=== PATIENT | male | born 1965 | race Caucasian/White ===

== ENCOUNTER 2018-06-10 17:16 | Emergency (ER) | payer OTHER ==
--- NOTE | 2018-06-10 19:44 | XR ---
PROCEDURE: XR foot complete RT, 3 views DATE AND TIME: 06/10/2018 7:34 PM REFERRING PHYSICIAN: Meg Daugherty CLINICAL INDICATION: Pain and redness and swelling for 3 days, assess for osteomyelitis TECHNIQUE: AP and lateral and oblique views COMPARISON: None FINDINGS: The bones and joints are unremarkable. Specifically, there is no skeletal evidence of osteo myelitis. There is soft tissue swelling of the forefoot, particularly laterally. No radiopaque foreign body. No soft tissue emphysema. IMPRESSION: Soft tissue swelling noted, but no skeletal evidence of osteomyelitis.
[2018-06-10 20:00] LABS: Basophils % (A) 0 %; Eosinophils # (A) 0.2 k/uL (0-0.7); Eosinophils % (A) 2 %; HCT 40.1 % (39.0-53.0); HGB 13.1 gm/dL (13.0-17.5); Lymphocytes # (A) 1.6 k/uL (1.0-4.8); Lymphocytes % (A) 17 %; MCH 34.5 pg (25.0-35.0); MCHC 32.6 g/dL (31.0-37.0); MCV 105.7 fL (80.0-100.0); Macrocytosis Slight; Mean Platelet Volume 6.8; Monocytes # (A) 0.6 k/uL (0-1.0); Monocytes % (A) 6 %; Neutrophils # (A) 7.2 k/uL (1.3-7.7); Neutrophils % (A) 73 %; Platelet Count 307 k/uL (150-450); RBC 3.79 m/uL (4.30-5.90); RDW 11.5 % (11.5-15.5); WBC 9.9 k/uL (3.8-10.6)
[2018-06-10 20:09] LABS: ALT 30 U/L (21-72); AST 15 U/L (17-59); Albumin 3.7 g/dL (3.5-5.0); Alkaline Phosphatase 72 U/L (38-126); Anion Gap 9 mmol/L; Blood Urea Nitrogen 11 mg/dL (9-20); C Reactive Protein 78.2 mg/L (<10.0); Calcium 8.5 mg/dL (8.4-10.2); Carbon Dioxide 22 mmol/L (22-30); Chloride 105 mmol/L (98-107); Glucose 99 mg/dL (74-99); Potassium 3.9 mmol/L (3.5-5.1); Sodium 136 mmol/L (137-145); Total Bilirubin 0.4 mg/dL (0.2-1.3); Total Protein 6.4 g/dL (6.3-8.2)
[2018-06-10 20:53] VITALS: BP 147/88; PULSE 100; RESP 20; TEMP 99.2
--- NOTE | 2018-06-10 21:20 | ED ---
General Adult HPI - General Chief complaint: Skin/Abscess/Foreign Body Stated complaint: blisters on feet Time Seen by Provider: 06/10/18 18:48 Source: patient, RN notes reviewed Mode of arrival: ambulatory Limitations: no limitations - History of Present Illness Initial comments: This is a 52yo male with PMH of HTN and GERD who presents today for CC of right foot erythema and abscess. Pt states that he has been doing a lot of walking at [place] and has gotten blisters on his feet. he noticed the blister on his right foot near the base of the 5th digit 4 days ago. The erythema began 2 days after. Today was the first day that he noticed the blister seemed to abscess, and looked like it was filled with pus. Pt stated that his was seen by medical professional at [place] who took temperature of 99F and recommended coming to the ER for abx. Pt admits to fever, chills. Pt states the blister is painful but denies pain in other areas of the feet, or the 5th toe. Pt denied previos MRSA infection. Patient denies any recent shortness of breath, chest pain, back pain, abdominal pain, nausea or vomiting, numbness or tingling, dysuria or hematuria, constipation or diarrhea, headaches or visual changes, or any other complaints. - Related Data Home Medications Medication Instructions Recorded Confirmed Calcium Carbonate [Calcium] 600 mg PO DAILY 06/10/18 06/10/18 Catapres Unknown Dose 1 tab PO BID 06/10/18 06/10/18 Ibuprofen [Motrin] 800 mg PO TID PRN 06/10/18 06/10/18 Magnesium 200 mg PO DAILY 06/10/18 06/10/18 Multivitamins, Thera [Multivitamin 1 tab PO DAILY 06/10/18 06/10/18 (formulary)] Zantac Unknown Dose 1 tab PO BID 06/10/18 06/10/18 Zinc 50 mg PO DAILY 06/10/18 06/10/18 Previous Rx's Medication Instructions Recorded Sulfamethox-Tmp 800-160Mg [Bactrim 1 tab PO Q12HR 7 Days #14 tab 06/10/18 DS 800-160 mg] Allergies Allergy/AdvReac Type Severity Reaction Status Date / Time acetaminophen AdvReac Unknown Verified 06/10/18 18:49 [From Tylenol-Codeine #3] codeine AdvReac Unknown Verified 06/10/18 18:49 [From Tylenol-Codeine #3] Review of Systems ROS Statement: Those systems with pertinent positive or pertinent negative responses have been documented in the HPI. ROS Other: All systems not noted in ROS Statement are negative. Constitutional: Reports: as per HPI, fever, chills. Denies: weakness Eyes: Denies: eye discharge ENT: Denies: ear pain, throat pain Respiratory: Denies: cough, dyspnea, stridor Cardiovascular: Denies: chest pain, palpitations Gastrointestinal: Denies: abdominal pain, nausea, vomiting, diarrhea, constipation Genitourinary: Denies: urgency, dysuria, frequency Musculoskeletal: Denies: joint swelling, arthralgia Skin: Reports: as per HPI Past Medical History Past Medical History: GERD/Reflux, Hypertension History of Any Multi-Drug Resistant Organisms: None Reported Past Surgical History: No Surgical Hx Reported Past Psychological History: Anxiety Smoking Status: Current every day smoker Past Alcohol Use History: None Reported Past Drug Use History: None Reported General Exam - General Exam Comments Initial Comments: General: The patient is awake and alert, in no distress, and does not appear acutely ill. Eye: Pupils are equal, round and reactive to light, extra-ocular movements are intact. No nystagmus. There is normal conjunctiva bilaterally. No signs of icterus. Ears, nose, mouth and throat: There are moist mucous membranes and no oral lesions. Neck: The neck is supple, there is no tenderness or JVD. Cardiovascular: There is a regular rate and rhythm. No murmur, rub or gallop is appreciated. Respiratory: Lungs are clear to auscultation, respirations are non-labored, breath sounds are equal. No wheezes, stridor, rales, or rhonchi. Gastrointestinal: [Soft, non-distended, non-tender abdomen without masses or organomegaly noted. There is no rebound or guarding present. No CVA tenderness. Bowel sounds are unremarkable.] Musculoskeletal: Normal ROM, no tenderness of the feet and digits b/l- only tenderness to palpation of the erythematous region of the right foot and over abscess. Strength 5/5. Sensation intact of the feet and LE b/l. Pulses equal bilaterally 2+ DP. Neurological: A&O x 3. CN II-XII intact, There are no obvious motor or sensory deficits. Coordination appears grossly intact. Speech is normal. Skin: Skin is warm and dry.. Fluctulant area that appears to be filled with pus on the lateral aspect of the right foot with surrounding erythema extending toward ankle and bottom of foot, that is warm to palpation and tender to pressure. Soft tissue edema. Psychiatric: Cooperative, appropriate mood & affect, normal judgment. Limitations: no limitations Course Vital Signs 06/10/18 06/10/18 17:22 20:53 Temperature 99.7 F H 99.2 F Pulse Rate 111 H 100 Respiratory 18 20 Rate Blood Pressure 162/103 147/88 O2 Sat by Pulse 98 96 Oximetry Procedures - Incision & Drainage Consent Obtained: verbal consent Time Out Performed?: Yes Indication: fluctulant abscess Site: foot (right foot, lateral aspect near base of fifth digit) Size (cm): 2 I&D Cleaning Method: Iodine Sterile Field Used?: Yes Scalpel Used: #11 Needle Aspiration Performed?: No Irrigation Performed?: Yes I&D Drainage Obtained: Pus, Blood Packing: Other (none ) Culture Obtained?: Yes Patient Tolerated Procedure: well, no complications Medical Decision Making - Medical Decision Making 52yo NON diabetic pt with CC of right foot pain, erythema and abscess concerning for possible cellulitis with abscess or osteomyelitis. CBC, CMP, CRP , rt foot XR and blood cx obtained. I & D performed minimal pus and blood drained from abscess. XR (-) for evidence of osteomyelitis at this time. CRP elevated, WBC WNL. Case was discussed in detail with Dr. Wick. At this time we feel this is a cellulitis with abscess from previous blister rather than an early osteomyelitis or septic joint due to physcial examination findings, lab results, VS and imaging. Pt was given 2g IVP cefazolin and then sent home with RX for PO bactrim DS for soft tissue infectin with MRSA coverage. Pt was given ibuprofen for pain. At this time we have low suspicion for systemic infection given laboratory value, VS and patient overall well appearance, pt appear non- toxic. Pt will be discharged with abx and PCP f/u in 1-2 days. Pt was educated on signs of system and worsening localized infection and instrcuted to return if these appear. Pt agreed d/c stable condition. - Lab Data Result diagrams: 06/10/18 19:47 06/10/18 19:47 Lab Results 06/10/18 06/10/18 Range/Units 19:47 19:47 WBC 9.9 (3.8-10.6) k/uL RBC 3.79 L (4.30-5.90) m/uL Hgb 13.1 (13.0-17.5) gm/dL Hct 40.1 (39.0-53.0) % MCV 105.7 H (80.0-100.0) fL MCH 34.5 (25.0-35.0) pg MCHC 32.6 (31.0-37.0) g/dL RDW 11.5 (11.5-15.5) % Plt Count 307 (150-450) k/uL Neutrophils % 73 % Lymphocytes % 17 % Monocytes % 6 % Eosinophils % 2 % Basophils % 0 % Neutrophils # 7.2 (1.3-7.7) k/uL Lymphocytes # 1.6 (1.0-4.8) k/uL Monocytes # 0.6 (0-1.0) k/uL Eosinophils # 0.2 (0-0.7) k/uL Basophils # 0.0 (0-0.2) k/uL Macrocytosis Slight Sodium 136 L (137-145) mmol/L Potassium 3.9 (3.5-5.1) mmol/L Chloride 105 (98-107) mmol/L Carbon Dioxide 22 (22-30) mmol/L Anion Gap 9 mmol/L BUN 11 (9-20) mg/dL Creatinine 0.60 L (0.66-1.25) mg/dL Est GFR (CKD-EPI)AfAm >90 (>60 ml/min/1.73 sqM) Est GFR (CKD-EPI)NonAf >90 (>60 ml/min/1.73 sqM) Glucose 99 (74-99) mg/dL Calcium 8.5 (8.4-10.2) mg/dL Total Bilirubin 0.4 (0.2-1.3) mg/dL AST 15 L (17-59) U/L ALT 30 (21-72) U/L Alkaline Phosphatase 72 (38-126) U/L C-Reactive Protein 78.2 H (<10.0) mg/L Total Protein 6.4 (6.3-8.2) g/dL Albumin 3.7 (3.5-5.0) g/dL Disposition Clinical Impression: Cellulitis and abscess of foot Disposition: HOME SELF-CARE Condition: Good Instructions: Cellulitis (ED), Abscess Incision and Drainage (ED) Additional Instructions: Please use medication as discussed. Please follow-up with family doctor in the next 2 days. If redness is increasing or spreading please immediately return to emergency department. Please return to emergency room if the symptoms increase or worsen or for any other concerns as discussed. Prescriptions: Sulfamethox-Tmp 800-160Mg [Bactrim DS 800-160 mg] 1 tab PO Q12HR 7 Days #14 tab Is patient prescribed a controlled substance at d/c from ED?: No Referrals: None,Stated [Primary Care Provider] - 1-2 days Time of Disposition: 21:16
[2018-06-10] MEDS ORDERED: IBUPROFEN 800 MG TAB PO STA (21:23)
[2018-06-10] MEDS ORDERED: ceFAZolin IN SWFI 2 GM/20 ML SYRINGE IVP ONE (21:30)
== END 2018-06-10 21:49 | disposition home or self-care (01) ==
LOC: EC 17:16
DX: L02.611 Cutaneous abscess of right foot (principal); L03.115 Cellulitis of right lower limb; K21.9 Gastro-esophageal reflux disease without esophagitis; I10 Essential (primary) hypertension; F17.200 Nicotine dependence, unspecified, uncomplicated; Z79.899 Other long term (current) drug therapy; Z88.5 Allergy status to narcotic agent; Z88.8 Allergy status to other drugs, medicaments and biological substances
CPT/HCPCS: 36415; 80053; 85025; 86140; 87040; 87070; 87205; 73630; 99283; 10060; 96374; J0690; 87077; 87186

== ENCOUNTER 2018-06-11 11:08 | Inpatient (IN) | payer OTHER ==
[2018-06-11] MEDS ORDERED: ceFAZolin IN SWFI 2 GM/20 ML SYRINGE IVP ONE (11:57)
[2018-06-11] MEDS ORDERED: ceFAZolin IN SWFI 2 GM/20 ML SYRINGE IVP STA (11:59)
--- NOTE | 2018-06-11 12:05 | ED ---
General Adult HPI - General Chief complaint: Recheck/Abnormal Lab/Rx Stated complaint: Sore on Foot Time Seen by Provider: 06/11/18 11:38 Source: patient, RN notes reviewed Mode of arrival: ambulatory Limitations: no limitations - History of Present Illness Initial comments: This is a 52-year-old male who presents to the emergency department with chief complaint of foot sore. Patient was seen in the emergency department here yesterday and diagnosed with right foot cellulitis. He was given IV antibiotics while in the emergency department and discharged home with oral Bactrim. CBC was within normal limits. CRP was elevated at 78.2. X-ray was obtained which revealed no evidence for acute osteomyelitis. Patient was contacted by provider, Maria Elena Daugherty who cared for patient yesterday. She was concerned about the elevated CRP as this can be seen with a necrotizing fasciitis. She recommended that patient return to the emergency department for further evaluation. Patient states that he does feel like the redness spread slightly but reports decreased pain. I&D was performed yesterday and a wound culture was obtained. Culture is still pending, however Gram-positive cocci have been noted. Patient denies any fevers or chills. States that the wound has still been draining actively. Denies chest pain or shortness of breath, abdominal pain, nausea or vomiting. Patient denies injuries or trauma. - Related Data Home Medications Medication Instructions Recorded Confirmed Ibuprofen [Motrin] 400 mg PO QID PRN 06/10/18 06/11/18 Multivitamins, Thera [Multivitamin 1 tab PO DAILY 06/10/18 06/11/18 (formulary)] Acetaminophen Tab [Tylenol Tab] 650 mg PO Q4H PRN 06/11/18 06/11/18 Calcium/Magnesium/Zinc 2 tab PO TID 06/11/18 06/11/18 [Tcmnxyh-Lxvqebgni-Crhu Tablet] Chlorpheniramine Maleate 4 mg PO Q4H PRN 06/11/18 06/11/18 [Chlor-Trimeton] Ranitidine HCl [Zantac] 150 mg PO BID 06/11/18 06/11/18 Thiamine [Vitamin B-1] 100 mg PO DAILY 06/11/18 06/11/18 cloNIDine HCL [Catapres] 0.1 mg PO BID 06/11/18 06/11/18 Previous Rx's Medication Instructions Recorded Sulfamethox-Tmp 800-160Mg [Bactrim 1 tab PO Q12HR 7 Days #14 tab 06/10/18 DS 800-160 mg] Allergies Allergy/AdvReac Type Severity Reaction Status Date / Time acetaminophen AdvReac Unknown Verified 06/11/18 12:01 [From Tylenol-Codeine #3] codeine AdvReac Unknown Verified 06/11/18 12:01 [From Tylenol-Codeine #3] Review of Systems ROS Statement: Those systems with pertinent positive or pertinent negative responses have been documented in the HPI. ROS Other: All systems not noted in ROS Statement are negative. Past Medical History Past Medical History: GERD/Reflux, Hypertension History of Any Multi-Drug Resistant Organisms: None Reported Past Surgical History: No Surgical Hx Reported Past Psychological History: Anxiety Smoking Status: Current every day smoker Past Alcohol Use History: Abuse Past Drug Use History: None Reported General Exam - General Exam Comments Initial Comments: General: Awake and alert, well-developed; in no apparent distress. HEENT: Head atraumatic, normocephalic. Pupils are equal, round and reactive to light. Extraocular movements intact. Oropharynx moist without erythema or exudate. Neck: Supple. Normal ROM. Cardiovascular: Regular rate and rhythm. No murmurs, rubs or gallops. Chest symmetrical. Respiratory: Lungs clear to auscultation bilaterally. No wheezes, rales or rhonchi. Normal respiratory effort with no use of accessory muscles. Musculoskeletal: Normal ROM bilateral upper and lower extremities. Skin: Open blister with purulent drainage at the lateral right foot just proximal to the fifth digit. There is surrounding erythema up to the patient's ankle with 2+ pitting edema. Sensation is intact. Pedal pulses are 2+ equal and palpable bilaterally. Neurological: Alert and oriented x3. CN II-XII grossly intact. Speech is fluent and answers are appropriate. No focal neuro deficits. Psychiatric: Normal mood and affect. No overt signs of depression or anxiety noted. Limitations: no limitations Course Vital Signs 06/11/18 06/11/18 11:15 12:45 Temperature 98.2 F Pulse Rate 103 H 99 Respiratory 16 16 Rate Blood Pressure 121/85 118/70 O2 Sat by Pulse 99 97 Oximetry Medical Decision Making - Medical Decision Making This is a 52-year-old male presents emergency department with chief complaint of right foot sore. Patient was seen here in the emergency department yesterday and diagnosed with right foot cellulitis. He was discharged home with Bactrim. At the time CBC revealed a normal white count and a CRP at 78.2. Patient returns to the emergency department today and has previous provider was concerned for necrotizing fasciitis. CRP was slightly elevated from yesterday 282. I, CBC is within normal limits. Patient is afebrile. On physical examination, there is diffuse erythema and swelling of the right foot with purulent drainage from a blister at the lateral distal right foot. Patient given a dose of IV cefazolin while in the emergency department. Computed tomography scan of the right foot was obtained which revealed evidence for severe subcutaneous soft tissue edema consistent with cellulitis. No evidence for necrotizing fasciitis or osteomyelitis. Patient will be admitted for IV antibiotics. He will be placed on vancomycin and Rocephin. Blood cultures were drawn yesterday and are pending. Patient's vital signs are stable and he is in no acute distress. He is in agreement for admission. - Lab Data Result diagrams: 06/11/18 12:30 06/11/18 12:30 Lab Results 06/11/18 06/11/18 Range/Units 12:30 12:30 WBC 8.5 (3.8-10.6) k/uL RBC 3.94 L (4.30-5.90) m/uL Hgb 14.2 (13.0-17.5) gm/dL Hct 41.3 (39.0-53.0) % MCV 104.9 H (80.0-100.0) fL MCH 36.1 H (25.0-35.0) pg MCHC 34.4 (31.0-37.0) g/dL RDW 11.6 (11.5-15.5) % Plt Count 314 (150-450) k/uL Neutrophils % 62 % Lymphocytes % 20 % Monocytes % 10 % Eosinophils % 4 % Basophils % 0 % Neutrophils # 5.3 (1.3-7.7) k/uL Lymphocytes # 1.7 (1.0-4.8) k/uL Monocytes # 0.8 (0-1.0) k/uL Eosinophils # 0.3 (0-0.7) k/uL Basophils # 0.0 (0-0.2) k/uL Macrocytosis Slight Sodium 139 (137-145) mmol/L Potassium 4.4 (3.5-5.1) mmol/L Chloride 107 (98-107) mmol/L Carbon Dioxide 23 (22-30) mmol/L Anion Gap 9 mmol/L BUN 16 (9-20) mg/dL Creatinine 0.70 (0.66-1.25) mg/dL Est GFR (CKD-EPI)AfAm >90 (>60 ml/min/1.73 sqM) Est GFR (CKD-EPI)NonAf >90 (>60 ml/min/1.73 sqM) Glucose 112 H (74-99) mg/dL Calcium 9.4 (8.4-10.2) mg/dL Total Bilirubin 0.3 (0.2-1.3) mg/dL AST 20 (17-59) U/L ALT 29 (21-72) U/L Alkaline Phosphatase 75 (38-126) U/L C-Reactive Protein 82.0 H (<10.0) mg/L Total Protein 6.6 (6.3-8.2) g/dL Albumin 3.7 (3.5-5.0) g/dL - Radiology Data Radiology results: report reviewed CT right foot without contrast impression: 1. Severe subcutaneous soft tissue edema dorsally and laterally suggestive of cellulitis. There is some skin breakdown bilaterally at the level of the fifth MCP joint. No edema within the deeper compartments or soft tissue air to indicate necrotizing fasciitis at this time. Close follow-up as indicated. 2. Well-defined, chronic, bony tunneling which extends from the os trigonum into the posterior talus to the level of the sinuses to see. Query history of prior surgery. Alternatively, this could be chronic posttraumatic or postinfectious sequela. No osseous erosions to suggest osteomyelitis. 3. Focal fusiform thickening along the plantar fascia at the mid foot level measuring 2.6 x 1.3 cm. The patient's history reports an abscess along the bottom of the foot, this location and appearance is more suggestive of a plantar fibroma. Clinically correlate. Disposition Clinical Impression: Cellulitis and abscess of foot Disposition: ADMITTED IP TO THIS HOSP Condition: Fair Is patient prescribed a controlled substance at d/c from ED?: No Referrals: None,Stated [Primary Care Provider] - 1-2 days Time of Disposition: 14:11
[2018-06-11 12:38] LABS: Basophils % (A) 0 %; Eosinophils # (A) 0.3 k/uL (0-0.7); Eosinophils % (A) 4 %; HCT 41.3 % (39.0-53.0); HGB 14.2 gm/dL (13.0-17.5); Lymphocytes # (A) 1.7 k/uL (1.0-4.8); Lymphocytes % (A) 20 %; MCH 36.1 pg (25.0-35.0); MCHC 34.4 g/dL (31.0-37.0); MCV 104.9 fL (80.0-100.0); Macrocytosis Slight; Mean Platelet Volume 6.9; Monocytes # (A) 0.8 k/uL (0-1.0); Monocytes % (A) 10 %; Neutrophils # (A) 5.3 k/uL (1.3-7.7); Neutrophils % (A) 62 %; Platelet Count 314 k/uL (150-450); RBC 3.94 m/uL (4.30-5.90); RDW 11.6 % (11.5-15.5); WBC 8.5 k/uL (3.8-10.6)
[2018-06-11 12:48] LABS: ALT 29 U/L (21-72); AST 20 U/L (17-59); Albumin 3.7 g/dL (3.5-5.0); Alkaline Phosphatase 75 U/L (38-126); Anion Gap 9 mmol/L; Blood Urea Nitrogen 16 mg/dL (9-20); Calcium 9.4 mg/dL (8.4-10.2); Carbon Dioxide 23 mmol/L (22-30); Chloride 107 mmol/L (98-107); Glucose 112 mg/dL (74-99); Potassium 4.4 mmol/L (3.5-5.1); Sodium 139 mmol/L (137-145); Total Bilirubin 0.3 mg/dL (0.2-1.3); Total Protein 6.6 g/dL (6.3-8.2)
--- NOTE | 2018-06-11 13:53 | CT ---
EXAMINATION TYPE: CT foot RT wo con DATE OF EXAM: 06/11/2018 COMPARISON: Radiographs 06/10/2018 HISTORY: 52-year-old male with right foot infection, abscess along bottom of foot, rule out necrotizi ng fasciitis. TECHNIQUE: Contiguous axial scanning of the right foot without IV contrast. Coronal and sagittal william nstructions performed. CT DLP: 153 mGycm Automated exposure control for dose reduction was used. FINDINGS: There is well-defined osseous tunneling that extends within the os trigonum into the posterior talus to the level of the sinus Tarsi. This could be on a postsurgical basis. Diffuse soft tissue swelling of the foot especially dorsally and laterally. Mild skin breakdown along the lateral aspect of the forefoot/midfoot at the level of the fifth MTP kimberly int. There is focal fusiform thickening along the plantar fascia at the midfoot level measuring 2.6 x 1.3 cm, referred to axial image 33 and sagittal image 17. Lack of IV contrast limits assessment for abscess. No soft tissue air or definite fluid seen tracking along the deeper fascial planes. No freeman fluid di stention of the tendon sheaths. No discrete osseous erosions are seen. Plantar calcaneal spur. IMPRESSION: 1. SEVERE SUBCUTANEOUS SOFT TISSUE EDEMA DORSALLY AND LATERALLY SUGGESTIVE OF CELLULITIS. THERE IS SO ME SKIN BREAKDOWN LATERALLY AT THE LEVEL OF THE FIFTH MTP JOINT. NO EDEMA WITHIN THE DEEPER COMPARTME NTS OR SOFT TISSUE AIR TO INDICATE NECROTIZING FASCIITIS AT THIS TIME. CLOSE FOLLOW-UP INDICATED. 2. WELL-DEFINED, CHRONIC, BONY TUNNELING WHICH EXTENDS FROM THE OS TRIGONUM INTO THE POSTERIOR TALUS TO THE LEVEL OF THE SINUS TARSI. QUERY HISTORY OF PRIOR SURGERY. ALTERNATIVELY, THIS COULD BE CHRONIC POST TRAUMATIC OR POST INFECTIOUS SEQUELA. NO OSSEOUS EROSIONS TO SUGGEST OSTEOMYELITIS. 3. FOCAL FUSIFORM THICKENING ALONG THE PLANTAR FASCIA AT THE MIDFOOT LEVEL MEASURING 2.6 X 1.3 CM. WH ILE THE PATIENT'S HISTORY REPORTS AN ABSCESS ALONG THE BOTTOM OF THE FOOT, THIS LOCATION AND APPEARAN CE IS MORE SUGGESTIVE OF A PLANTAR FIBROMA. CLINICALLY CORRELATE.
[2018-06-11] MEDS ORDERED: VANCOMYCIN IV PER PHARMACY 1 EACH MISC MISCELLANE PRN (14:01)
[2018-06-11] MEDS ORDERED: VANCOMYCIN 1,500 MG in SODIUM CHLORIDE 0.9% 250 ML IVPB STA (14:11)
[2018-06-11] MEDS ORDERED: KETOROLAC 30 MG/ML 1 ML VIAL IVP PRN (14:12)
[2018-06-11] MEDS: SODIUM CHLORIDE 0.9% 1,000 ML IV SCH (15:46)
[2018-06-11] MEDS ORDERED: cefTRIAXone IN SWFI 1,000 MG/10 ML SYRINGE IVP SCH (16:00)
[2018-06-11] MEDS: IBUPROFEN 600 MG TAB PO PRN (22:11)
[2018-06-11] MEDS: FAMOTIDINE 20 MG TAB PO SCH (22:11)
[2018-06-11] MEDS: cloNIDine HCL 0.1 MG TAB PO SCH (22:11)
--- NOTE | 2018-06-11 23:14 | HP ---
HISTORY AND PHYSICAL CHIEF COMPLAINT: A 52-year-old white male with right foot cellulitis. Apparently he has been at [facility] for rehab over the past 21 days for alcohol rehab. He was admitted here after coming to the hospital yesterday. He came back again today due to worsening blisters and redness of his right foot. He apparently had a CT scan of his foot that showed no acute osteomyelitis. He was started on vancomycin, admitted to the hospital due to his entire foot was extremely red. HOME MEDICATIONS: Include: 1. Motrin. 2. Zantac. 3. Catapres 0.1 b.i.d. ALLERGIES: TYLENOL. REVIEW OF SYSTEMS: Fourteen-point review of systems negative except for mentioned in HPI. PAST MEDICAL HISTORY: GERD, reflux, hypertension, anxiety. Current everyday smoker. OPHTHALMOLOGICAL: Pupils equal, round, reactive to light and accommodation. Lungs are clear. GI: Soft. HEMATOLOGY: Negative Homans'. OPHTHALMOLOGIC: Pupils equal, round, react to light and accommodation. INTEGUMENT: His entire right foot is extremely red and warm. He has a pustule on the right lateral mid foot about 2 x 2 cm. Blood pressure is 118-120/70s-85. T-max is 98.2, pulse is 99-103, O2 97%-99% on room air. ASSESSMENT: 1. Significant cellulitis of the entire right foot, failing outpatient treatment. 2. Open ulceration of the right foot. Surgical consult with Dr. Mckeon as well as consult with Infectious Disease was done. Continue vancomycin. 3. History of alcoholism alcohol rehab and clonidine for rehab and possibly tachycardia. Continue with current treatment from home and IV antibiotics. Await Infectious Disease and Vascular consult. MMODL / IJN: [id number] /
[2018-06-12] MEDS: VANCOMYCIN 1,500 MG in SODIUM CHLORIDE 0.9% 250 ML IVPB SCH ×3 (00:11→15:58)
[2018-06-12] MEDS: SODIUM CHLORIDE 0.9% 1,000 ML IV SCH ×2 (04:41→15:59)
--- NOTE | 2018-06-12 05:26 | CONS ---
CONSULTATION DATE OF SERVICE: 06/11/2018 REASON FOR CONSULTATION: Right foot abscess and cellulitis. HISTORY OF PRESENT ILLNESS: Patient is a 52-year-old male who is currently at [facility]. The patient says that he has been doing a lot of walking while at [facility] and developing blister on both his feet and mostly at the base of his fifth toe on both feet. On the right side, the patient has developed a blister that has opened up with some superficial ulceration and minimal drainage and subsequent redness of his right foot. Patient has been complaining of pain into the right foot, more of a throbbing pain, 5 to 6 out of 10, and no radiation. He did have some associated chills with these symptoms so the patient has been evaluated by the ER physician yesterday. He did have x-rays which was negative for any bony changes. The patient subsequently discharged home on Bactrim DS. Apparently, the patient did have blood work with elevated CRP with ER physician concerning it may be necrotizing fascitis, asked the patient to come back to the hospital. A CT was done which was negative for fasciitis. The patient has been admitted to the hospital and Infectious Disease was consulted for further recommendation regarding antibiotic therapy. REVIEW OF SYSTEMS: CONSTITUTIONAL: Positive for weakness along with some chills. EYES: No complaint. ENT: No complaint. RESPIRATORY: No complaint. CARDIOVASCULAR: No complaint. GENITOURINARY: No complaint. GASTROINTESTINAL: No complaint. MUSCULOSKELETAL: As per HPI. INTEGUMENTARY: As per HPI. PSYCHOLOGICAL: No complaint. ENDOCRINE: No complaint. NEUROLOGIC: No complaint. PAST MEDICAL HISTORY: His past medical history is significant for gastroesophageal reflux disease, hypertension. PAST SURGICAL HISTORY: No major surgeries. SOCIAL HISTORY: Current every day smoker. Did admit to alcohol abuse. No drug use. FAMILY HISTORY: No pertinent findings noticed. ALLERGIES: Allergies to ACETAMINOPHEN and CODEINE. MEDICATIONS: Medications include the patient is currently on Rocephin 1 gram daily. He is on clonidine, Pepcid, Motrin, Toradol, Theragran, vancomycin mg every 8 hours. PHYSICAL EXAMINATION: On examination, blood pressure is 121/92 with a pulse of 90, temperature 98.6. He is 98% on room air. General description is a middle-aged male lying in bed in no distress. No tachypnea or accessory muscle of respiration use. HEENT examination shows no pallor or scleral icterus. Oral mucous membrane is dry. No pharyngeal erythema or thrush. NECK: Trachea central. No thyromegaly. LUNGS: Unlabored breathing, clear to auscultation anteriorly. No wheeze or crackle. HEART: S1, S2. Regular rate and rhythm. No added sounds. ABDOMEN: Soft. No tenderness. No guarding or rigidity. EXTREMITIES: Right foot is swollen and red, slightly warm to touch. On the left side, he did have a pustule that was open and cultures were obtained. NEUROLOGICAL: Patient is awake, alert, oriented x3. Mood and affect normal. LABS: Hemoglobin is 14.2, white count 8.5 with a BUN of 16, creatinine 0.90. Electrolytes have been normal. Liver enzymes are normal. Cultures currently pending. DIAGNOSTIC IMPRESSION AND PLAN: Patient with right foot cellulitis that started with a blister to the lateral side of his foot from walking. The patient likely from a gram-positive skin travis, has a question of possible methicillin-resistant Staphylococcus aureus versus methicillin- sensitive Staphylococcus aureus. Clinically, the patient is for a gram-negative infection though not entirely excluded. PLAN: 1. Wound culture has been obtained and to guide further antibiotic therapy. 2. Vancomycin pharmacy to dose, target of 15 while awaiting for the culture to finalize. 3. Chuck the area of redness. 4. Depending upon the clinical response as well as cultures will adjust medication further if needed. Thank you for this consultation. Will follow this patient along with you. MMODL / IJN: [id number] /
[2018-06-12] MEDS: THIAMINE 100 MG TAB PO SCH (07:35)
[2018-06-12] MEDS: cefTRIAXone IN SWFI 2,000 MG/20 ML SYRINGE IVP SCH (07:35)
[2018-06-12] MEDS: MULTIVITAMINS, THERA 1 EACH TAB PO SCH (07:35)
[2018-06-12] MEDS: FAMOTIDINE 20 MG TAB PO SCH ×2 (07:35→22:03)
[2018-06-12] MEDS: cloNIDine HCL 0.1 MG TAB PO SCH ×2 (07:35→22:03)
[2018-06-12] MEDS: IBUPROFEN 600 MG TAB PO PRN ×2 (07:38→22:14)
[2018-06-12 09:52] LABS: Basophils % (A) 1 %; Eosinophils # (A) 0.4 k/uL (0-0.7); Eosinophils % (A) 6 %; HCT 37.4 % (39.0-53.0); HGB 12.2 gm/dL (13.0-17.5); Lymphocytes # (A) 1.3 k/uL (1.0-4.8); Lymphocytes % (A) 24 %; MCHC 32.5 g/dL (31.0-37.0); MCV 107.5 fL (80.0-100.0); Macrocytosis Moderate; Monocytes # (A) 0.4 k/uL (0-1.0); Monocytes % (A) 6 %; Neutrophils # (A) 3.3 k/uL (1.3-7.7); Neutrophils % (A) 60 %; Platelet Count 257 k/uL (150-450); RBC 3.48 m/uL (4.30-5.90); RDW 11.7 % (11.5-15.5); WBC 5.5 k/uL (3.8-10.6)
[2018-06-12 09:57] LABS: ALT 27 U/L (21-72); AST 17 U/L (17-59); Alkaline Phosphatase 60 U/L (38-126); Anion Gap 7 mmol/L; Blood Urea Nitrogen 15 mg/dL (9-20); Calcium 8.5 mg/dL (8.4-10.2); Carbon Dioxide 22 mmol/L (22-30); Chloride 109 mmol/L (98-107); Glucose 142 mg/dL (74-99); Potassium 4.4 mmol/L (3.5-5.1); Sodium 138 mmol/L (137-145); Total Bilirubin 0.2 mg/dL (0.2-1.3); Total Protein 5.4 g/dL (6.3-8.2)
--- NOTE | 2018-06-12 13:24 | P.ARTDOP ---
Arterial Doppler Wound care consultation: Reason for consultation: Ulceration right foot. History of chief complaint: While in [place] rehab facility for alcohol abuse, the patient developed an ulcer on the lateral right foot. He developed a lot of pain in the foot. He was transferred here for medical care. The rest of his history is pretty noncontributory in regards to this wound. Physical examination: Well-developed well-nourished 52-year-old gentleman in no current acute distress. HEENT: Teeth in poor repair Lungs: Well aerated Heart: Sinus rhythm Abdomen: Benign Extremities: Bounding bilateral pulses. On the dorsal lateral aspect of the right foot the patient has a blistering. Underneath the blister there are still several small shallow ulcerations. These appear to be full-thickness but are fairly clean once the blistered skin is removed. Impression: Traumatic ulcer dorsum lateral right foot with fatty layer exposed. Recommendation: At this point I would continue with antibiotics. They could very soon be transferred over to oral antibiotics. I would simply treat the ulcers themselves with topical application of absorptive silver/Aquasol silver. The wound would be cleansed every other day and the dressing changed. I will be happy to see him as needed.
--- NOTE | 2018-06-12 14:18 | PN ---
PROGRESS NOTE DATE OF SERVICE: 06/12/2018 REASON FOR FOLLOWUP: Right foot wound and cellulitis. INTERVAL HISTORY: The patient is currently afebrile. He is breathing comfortably. Denies having any chest pain or shortness of breath or cough. No abdominal pain. Pain to the right foot. Slight decreased intensity and no drainage. PHYSICAL EXAMINATION: Blood pressure 120/71 with a pulse of 81, temperature 97.6. He is 99% on room air. General description is a middle-aged male, lying in bed in no distress. RESPIRATORY SYSTEM: Unlabored breathing, clear to auscultation anteriorly. HEART: S1, S2. Regular rate and rhythm. ABDOMEN: Soft, no tenderness. Right foot swelling that has minimal drainage. LABS: The culture obtained on 06/10 showing presumptive Staph aureus. Blood culture has been negative. DIAGNOSTIC IMPRESSION AND PLAN: Patient with right foot wound with secondary cellulitis. Culture has been positive for this Staphylococcus aureus with concern for possible methicillin-resistant Staphylococcus aureus. He is currently on vancomycin, pharmacy to dose. Will continue while watching his kidney function closely, adjusting antibiotic further based on the clinical response as well as cultures. Continue supportive care. MMODL / IJN: [id number] /
--- NOTE | 2018-06-12 18:56 | PN ---
PROGRESS NOTE SUBJECTIVE: This is a 52-year-old white male with right foot cellulitis and lateral foot abscess. Awaiting consult by Vascular Surgery, Dr. Mckeon, as well as Infectious Disease. He remains on IV vancomycin for failed outpatient treatment. Integument shows the entire foot is red with an callus ulcer on the right lateral foot. His entire is warm and swollen. CARDIOVASCULAR: S1, S2. LUNGS: Clear. GI: Soft. HEMATOLOGY: Negative Homans. ASSESSMENT: 1. Right foot cellulitis. 2. Abscess to the right lateral foot. 3. Alcohol dependence. PLAN: Continue with current treatment with vancomycin. Await infectious disease recommendation and vascular recommendation. MMODL / IJN: [id number] /
[2018-06-13] MEDS: VANCOMYCIN 1,500 MG in SODIUM CHLORIDE 0.9% 250 ML IVPB SCH ×2 (01:02→08:04)
[2018-06-13] MEDS ORDERED: VANCOMYCIN TROUGH DUE 1 EACH MISC MISCELLANE ONE (07:00)
[2018-06-13 07:38] VITALS: RESP 16
[2018-06-13] MEDS: SODIUM CHLORIDE 0.9% 1,000 ML IV SCH ×2 (08:03→20:37)
[2018-06-13] MEDS: cloNIDine HCL 0.1 MG TAB PO SCH ×2 (08:04→20:35)
[2018-06-13] MEDS: MULTIVITAMINS, THERA 1 EACH TAB PO SCH (08:04)
[2018-06-13] MEDS: FAMOTIDINE 20 MG TAB PO SCH ×2 (08:04→20:35)
[2018-06-13] MEDS: THIAMINE 100 MG TAB PO SCH (08:04)
[2018-06-13] MEDS: cefTRIAXone IN SWFI 2,000 MG/20 ML SYRINGE IVP SCH (08:04)
[2018-06-13] MEDS: ceFAZolin IN SWFI 2 GM/20 ML SYRINGE IVP SCH ×2 (15:39→23:12)
[2018-06-13] MEDS ORDERED: VANCOMYCIN 1,250 MG in SODIUM CHLORIDE 0.9% 250 ML IVPB SCH (16:00)
[2018-06-13] MEDS: IBUPROFEN 600 MG TAB PO PRN (20:35)
--- NOTE | 2018-06-13 23:22 | PN ---
PROGRESS NOTE DATE OF SERVICE: 06/13/2018 REASON FOR FOLLOWUP: Right foot wound and cellulitis, MSSA. INTERVAL HISTORY: The patient is currently afebrile. He is breathing comfortably. Denies having any chest pain or shortness of breath or cough. No abdominal pain or any worsening pain in the right foot area. PHYSICAL EXAMINATION: Blood pressure 140/88 with a pulse of 79, temperature 97.5. He is 95% on room air. General description is a middle-aged male lying in bed in no distress. RESPIRATORY SYSTEM: Unlabored breathing. Clear to auscultation anteriorly. HEART: S1, S2. Regular rate and rhythm. ABDOMEN: Soft. No tenderness. LABS: Wound culture finalized with MSSA. DIAGNOSTIC IMPRESSION AND PLAN: Patient with MSSA right foot wound and cellulitis. Antibiotic will be switched to cefazolin 2 grams q.8 hours. Continue with IV antibiotic for at least 24 hours and if the patient continues to improve, to finish therapy with oral antibiotics. Continue supportive care. Plan of care was discussed with the admitting physician. GAVI / TESSA: [id number] /
--- NOTE | 2018-06-14 05:04 | PN ---
PROGRESS NOTE SUBJECTIVE: This is a 52-year-old white male right foot cellulitis and abscess. Dr. Mckeon discussed it with him. Remain on IV antibiotics for another 24 hours and switch to oral antibiotics tomorrow, possibly Augmentin and can be discharged. Vital signs stable. Afebrile. Cardiovascular: S1, S2. GI soft. Hematology negative Homans. Integument shows right foot decreased redness and swelling. Right lateral foot still has an abrasion in the debridement area. ASSESSMENT: 1. Cellulitis/abscess of the right lateral foot. 2. Alcohol dependence. Continue current treatment. Possible oral antibiotics. Home tomorrow on Augmentin. MMODL / IJN: [id number] /
[2018-06-14 06:17] VITALS: BP 134/78; PULSE 74; TEMP 97.9
[2018-06-14] MEDS: FAMOTIDINE 20 MG TAB PO SCH (07:55)
[2018-06-14] MEDS: cloNIDine HCL 0.1 MG TAB PO SCH (07:56)
[2018-06-14] MEDS: MULTIVITAMINS, THERA 1 EACH TAB PO SCH (07:56)
[2018-06-14] MEDS: THIAMINE 100 MG TAB PO SCH (07:56)
[2018-06-14] MEDS: SODIUM CHLORIDE 0.9% 1,000 ML IV SCH (07:56)
[2018-06-14] MEDS: ceFAZolin IN SWFI 2 GM/20 ML SYRINGE IVP SCH (07:56)
[2018-06-14 08:56] LABS: Anion Gap 7 mmol/L; Blood Urea Nitrogen 9 mg/dL (9-20); Carbon Dioxide 25 mmol/L (22-30); Chloride 109 mmol/L (98-107); Glucose 104 mg/dL (74-99); Potassium 4.7 mmol/L (3.5-5.1); Sodium 141 mmol/L (137-145)
--- NOTE | 2018-06-14 13:56 | PN ---
PROGRESS NOTE DATE OF SERVICE: 06/14/2018 REASON FOR FOLLOWUP: Right foot MSSA abscess and cellulitis. INTERVAL HISTORY: The patient is currently afebrile. He is breathing comfortably. Denies having any chest pain. No cough. No abdominal pain. Only with pain in the right foot area. PHYSICAL EXAMINATION: Blood pressure 134/78 with a pulse of 74, temperature of 97.9, he is 97% on room air. General description is a middle-aged male, up in the room in no distress. RESPIRATORY SYSTEM: Unlabored breathing, clear to auscultation anteriorly. HEART: S1, S2. Regular rate and rhythm. Right foot overall swelling is much improved, no drainage. LABS: Creatinine 0.63. Wound culture with MSSA. DIAGNOSTIC IMPRESSION AND PLAN: Patient with methicillin-sensitive Staphylococcus aureus right foot abscess and cellulitis, status post spontaneous drainage. Overall improvement in his cellulitis. Plan is to finish therapy with oral Keflex 500 mg p.o. q.6 hours for 10 days. The patient to follow up in the office in 1 week. However, the patient said he will be in [place]. He will follow with his own physician. Continue supportive care. MMODL / IJN: [id number] /
== END 2018-06-14 15:30 | disposition short-term general hospital (02) | DRG 603 ==
LOC: EC 11:08 → 4MS4W 14:05 → OBSVTOIN 06-12 09:21
PROVIDERS: ADMIT Family Medicine; ATTEND Family Medicine
DX: L02.611 Cutaneous abscess of right foot (principal); L03.115 Cellulitis of right lower limb; L97.519 Non-pressure chronic ulcer of other part of right foot with unspecified severity; B95.61 Methicillin susceptible Staphylococcus aureus infection as the cause of diseases classified elsewhere; F10.20 Alcohol dependence, uncomplicated; I10 Essential (primary) hypertension; K21.9 Gastro-esophageal reflux disease without esophagitis; F41.9 Anxiety disorder, unspecified; R79.82 Elevated C-reactive protein (CRP); F17.200 Nicotine dependence, unspecified, uncomplicated; Z79.899 Other long term (current) drug therapy; Z88.6 Allergy status to analgesic agent; Z88.5 Allergy status to narcotic agent
CPT/HCPCS: 36415; 80048; 80053; 80202; 85025; 86140; 87070; 87077; 87186; 87205; 96365; 96375; 99284